=== PATIENT | male | born 1970 | race Two or more races ===

== ENCOUNTER 2023-01-17 01:24 | Emergency (ER) | payer OTHER ==
[~2023-01-17] VITALS: Ht 177.8 cm; Wt 69.9 kg
[2023-01-17] MEDS ORDERED: DOVATO 50-3001 EACH PO (01:39)
[2023-01-17] MEDS ORDERED: SYNTHROID100 MCG PO (01:39)
== END 2023-01-17 02:20 | disposition home or self-care (01) ==
LOC: ER 01:24
DX: K29.60 Other gastritis without bleeding (principal); R53.81 Other malaise; R00.0 Tachycardia, unspecified; G25.2 Other specified forms of tremor

== ENCOUNTER 2023-03-22 11:37 | Emergency (ER) | payer OTHER ==
[~2023-03-22] VITALS: Ht 177.8 cm; Wt 72.6 kg
[~2023-03-22 11:37] MED LIST: DOVATO 50-3001 EACH PO; SYNTHROID100 MCG PO
== END 2023-03-22 14:49 | disposition home or self-care (01) ==
LOC: ER 11:37
DX: R07.89 Other chest pain (principal)

== ENCOUNTER → 2024-07-28 | Emergency (ER) | payer OTHER ==
[~2024-07-28] VITALS: Ht 177.8 cm; Wt 78.0 kg
[~2024-07-28] MED LIST changes: +BUTALB/ACETAMINOPHEN/CAFFEINE 1 TAB TABLET PO ONE; +COZAAR25 MG PO
== END | disposition home or self-care (01) ==
LOC: ER 08:37
DX: R51.9 Headache, unspecified (principal); I10 Essential (primary) hypertension

== ENCOUNTER → 2024-08-06 | Emergency (ER) | payer OTHER ==
[~2024-08-06] MED LIST changes: -BUTALB/ACETAMINOPHEN/CAFFEINE 1 TAB TABLET PO ONE
== END | disposition left against medical advice (07) ==
LOC: ER 00:05
DX: Z53.21 Procedure and treatment not carried out due to patient leaving prior to being seen by health care provider (principal)

== ENCOUNTER 2024-11-14 00:34 | Emergency (ER) | payer OTHER ==
[~2024-11-14] VITALS: Ht 177.8 cm; Wt 77.6 kg
[2024-11-14] MEDS ORDERED: CARVEDILOL ER40 MG (00:58)
[2024-11-14] MEDS ORDERED: NIFEDIPINE 10 MG CAPSULE PO STA (02:36)
== END 2024-11-14 03:33 ==
LOC: ER 00:36
DX: I10 Essential (primary) hypertension (principal); R51.9 Headache, unspecified

== ENCOUNTER 2025-02-08 00:06 | Emergency (ER) | payer OTHER ==
[~2025-02-08] VITALS: Ht 177.8 cm; Wt 81.6 kg
[~2025-02-08 00:06] MED LIST changes: +CARVEDILOL ER40 MG
[2025-02-08] MEDS ORDERED: FAMOTIDINE/PF 20 MG/2 ML VIAL IV PUSH STA (01:31)
[2025-02-08] MEDS ORDERED: ONDANSETRON HCL 2 MG/ML VIAL IV STA (01:31)
[2025-02-08] MEDS ORDERED: SUCRALFATE 1 G TABLET PO STA (01:32)
[2025-02-08] MEDS ORDERED: ONDANSETRON HCL 2 MG/ML VIAL ONE (01:32)
[2025-02-08] MEDS ORDERED: FAMOTIDINE/PF 20 MG/2 ML VIAL ONE (01:33)
[2025-02-08] MEDS ORDERED: PEPCID40 MG PO (03:00)
[2025-02-08] MEDS ORDERED: ONDANSETRON ODT8 MG PO (03:00)
[2025-02-08] MEDS ORDERED: CARAFATE1 GM PO (03:00)
== END 2025-02-08 03:06 | disposition home or self-care (01) ==
LOC: ER 00:07
DX: K21.9 Gastro-esophageal reflux disease without esophagitis (principal); I10 Essential (primary) hypertension
CPT/HCPCS: 96365; 99282; J2405; J3490